=== PATIENT | female | born 1975 | race African-American/Black ===

== ENCOUNTER 2023-11-23 13:24 | Emergency (ER) | payer SELFPAY ==
[~2023-11-23] VITALS: Ht 175.3 cm; Wt 84.4 kg
[2023-11-23] VITALS (14 sets, daily range): BP systolic 90–125; BP diastolic 58–88
[~2023-11-23 13:24] MED LIST: BACTRIM DS1 TAB PO
[2023-11-23] MEDS ORDERED: oxyCODONE 5MG/ ACETAMINOPHEN 325MG TAB PO ONE (14:45)
[2023-11-23] MEDS ORDERED: MOTRIN800 MG PO (16:56)
== END 2023-11-23 17:48 | disposition home or self-care (01) | DRG 563 ==
LOC: ED 13:24
PROC: 2W3TX1Z Immobilization of Left Foot using Splint (ICD-10-PCS; principal; 2023-11-23)
DX: S92.352A Displaced fracture of fifth metatarsal bone, left foot, initial encounter for closed fracture (principal); F17.200 Nicotine dependence, unspecified, uncomplicated; W10.9XXA Fall (on) (from) unspecified stairs and steps, initial encounter

== ENCOUNTER 2024-08-04 10:27 | Emergency (ER) | payer SELFPAY ==
[~2024-08-04 10:27] MED LIST changes: +MOTRIN800 MG PO
== END 2024-08-04 11:05 | disposition home or self-care (01) | DRG 951 ==
LOC: ED 10:27 → LWOBS 11:05
DX: Z53.21 Procedure and treatment not carried out due to patient leaving prior to being seen by health care provider (principal)